=== PATIENT | female | born 2000 | race Two or more races ===

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

== ENCOUNTER 2021-06-10 01:32 | Emergency (ER) | payer OTHER ==
[~2021-06-10] VITALS: Ht 149.9 cm; Wt 47.6 kg
[~2021-06-10 01:32] MED LIST: OSEL75CA PO; TUSICOF CAPLET1 EACH PO
[2021-06-10] MEDS ORDERED: DOLOGESIC 500-1 EACH PO (08:33)
[2021-06-10] MEDS ORDERED: ZOFRAN4 MG PO (08:36)
== END 2021-06-10 08:47 | disposition home or self-care (01) ==
LOC: ER 01:32
DX: B34.9 Viral infection, unspecified (principal); Z03.818 Encounter for observation for suspected exposure to other biological agents ruled out; R11.2 Nausea with vomiting, unspecified; R50.9 Fever, unspecified; R05.9 Cough, unspecified; R53.81 Other malaise

== ENCOUNTER 2021-09-25 22:54 | Emergency (ER) | payer OTHER ==
[~2021-09-25] VITALS: Ht 149.9 cm; Wt 49.9 kg
[~2021-09-25 22:54] MED LIST changes: +ACETAMINOPHEN650 M2; +ACETAMINOPHEN650 M2 PO; +DOLOGESIC 500-1 EACH PO; +MELATONIN10 M2 PO; +MUCINEX DM ER1 EAC1 PO; +VITAMIN C WIT1000 MG PO; +ZOFRAN4 MG PO
[2021-09-26] MEDS ORDERED: PEPCID AC20 MG PO (02:21)
[2021-09-26] MEDS ORDERED: CARAFATE1 GM PO (02:21)
== END 2021-09-26 02:24 | disposition home or self-care (01) ==
LOC: EMR PED 22:54
DX: K29.70 Gastritis, unspecified, without bleeding (principal); R10.13 Epigastric pain

== ENCOUNTER 2023-12-04 19:42 | Emergency (ER) | payer OTHER ==
[~2023-12-04] VITALS: Ht 149.9 cm; Wt 59.0 kg
[~2023-12-04 19:42] MED LIST changes: +CARAFATE1 GM PO; +PEPCID AC20 MG PO
[2023-12-04 21:50] LABS: HEMATOCRIT 38.4 % (36.0-45.00); HEMOGLOBIN 13.1 g/dL (12.0-15.00); MEAN CELL VOLUME 85.8 fL (80.00-100.00); MEAN CORPUSCULAR HEMOGLOBIN 29.3 pg (27.00-32.0); MEAN CORPUSCULAR HGB CONC 34.1 g/dl (32.0-36.0); PLATELET COUNT 255 K/uL (150-450); RED BLOOD COUNT 4.47 M/uL (4.00-6.00)
[2023-12-04 21:50] LABS: PH,URINE 5.5 (5.0-8.0); URINE APPEARANCE Clear; URINE BILIRRUBIN Negative (NEGATIVE); URINE BLOOD Moderate; URINE COLOR Yellow; URINE GLUCOSE Negative (NEGATIVE); URINE LEUKOCYTE Negative; URINE NITRATE Negative; URINE PROTEIN Negative (NEGATIVE); URINE UROBILINOGEN 0.2 E.U./dl
[2023-12-04 21:51] LABS: URINE BACTERIA 482.4 uL (0.0-1933); URINE EPITHELIAL CELLS 9.4 uL (0.0-38.8); URINE RBC 2.4 uL (0.0-20.8); URINE WBC 4.6 uL (0.0-23.2)
[2023-12-04 22:13] LABS: INR 0.95; PARTIAL THROMBOPLASTIN TIME 29.9 SECONDS (22.0-34.0)
[2023-12-04 22:15] LABS: CALCIUM 9.7 mg/dL (8.5-10.1); CREATININE SERUM 0.76 mg/dL (0.55-1.02); GFR 95.16; POTASSIUM 4.2 mEq/L (3.5-5.1)
== END 2023-12-04 23:35 | disposition home or self-care (01) ==
LOC: ER 19:43
PROVIDERS: Emergency Medicine
DX: N93.9 Abnormal uterine and vaginal bleeding, unspecified (principal)

== ENCOUNTER 2024-12-30 16:58 | Emergency (ER) | payer OTHER ==
[~2024-12-30] VITALS: Ht 149.9 cm; Wt 54.4 kg
[2024-12-30] MEDS ORDERED: FAMOtidine 10 MG/ML (4ML VIAL) IV ONE (18:30)
[2024-12-30] MEDS ORDERED: KETOROLAC TROMETHAMINE 30 MG VIAL IV ONE (18:30)
[2024-12-30] MEDS ORDERED: 0.9 % SODIUM CHLORIDE 1,000 ML IV ONE (18:30)
[2024-12-30] MEDS ORDERED: FAMOTIDINE/PF 20 MG/2 ML VIAL ONE (18:43)
[2024-12-30] MEDS ORDERED: KETOROLAC TROMETHAMINE 30 MG VIAL ONE (18:43)
[2024-12-30 19:02] LABS: PH,URINE >= 9.0 (5.0-8.0); URINE APPEARANCE Cloudy; URINE BILIRRUBIN Negative (NEGATIVE); URINE BLOOD Large; URINE COLOR Yellow; URINE GLUCOSE Negative (NEGATIVE); URINE KETONE Negative (NEGATIVE); URINE LEUKOCYTE Large; URINE NITRATE Negative
[2024-12-30 19:05] LABS: URINE BACTERIA 1976.5 uL (0.0-1933); URINE EPITHELIAL CELLS 7.1 uL (0.0-38.8); URINE RBC 214.4 uL (0.0-20.8); URINE WBC 1391.1 uL (0.0-23.2)
[2024-12-30 19:13] LABS: HEMATOCRIT 40.6 % (36.0-45.00); HEMOGLOBIN 13.7 g/dL (12.0-15.00); MEAN CELL VOLUME 88.2 fL (80.00-100.00); MEAN CORPUSCULAR HEMOGLOBIN 29.8 pg (27.00-32.0); MEAN CORPUSCULAR HGB CONC 33.9 g/dl (32.0-36.0); PLATELET COUNT 276 K/uL (150-450); RED CELL DISTRIBUTION WIDTH 12.7 % (11.5-14.5)
[2024-12-30 19:15] LABS: URINE CAST 0.58 uL (0.0-1.40); URINE PROTEIN 100 (NEGATIVE)
[2024-12-30] MEDS ORDERED: CEFTRIAXONE SODIUM 1,000 MG VIAL IV ONE (19:30)
[2024-12-30] MEDS ORDERED: TAMSULOSIN HCL 0.4 MG CAP PO ONE ×2 (19:30→19:50)
[2024-12-30 19:34] LABS: INR 0.98; PARTIAL THROMBOPLASTIN TIME 30.1 SECONDS (22.0-34.0); PROTHROMBIN TIME 10.7 SECONDS (9.0-11.5)
[2024-12-30 19:40] LABS: ALBUMIN 4.5 gm/dL (3.4-5.0); ALKALINE PHOSPHATASE 69 U/L (50-136); ALT/SGPT 22 U/L (12-78); ANION GAP 10 (10.0-20.0); AST/SGOT 20 U/L (15-37); BILIRUBIN TOTAL 0.28 mg/dL (0.3-1.2); BLOOD UREA NITROGEN 14 mg/dL (7-18); BUN CREA RATIO 19 (7.0-25.0); CALCIUM 9.4 mg/dL (8.5-10.1); CARBON DIOXIDE 27 mEq/L (21-32); CHLORIDE 111 mmol/L (98-107); CREATININE SERUM 0.75 mg/dL (0.55-1.02); GFR 95.76; GLOBULINA 3.6 G/DL (2.4-3.5); GLUCOSE FASTING 88 mg/dL (65-100); OSMOLALITY SERUM 287 MOSM/KG (275-295); POTASSIUM 4.02 mEq/L (3.5-5.1); SODIUM 144 mmol/L (136-145); TOTAL PROTEIN 8.1 gm/dL (6.4-8.2)
[2024-12-30] MEDS ORDERED: CEFTRIAXONE SODIUM 1,000 MG VIAL ONE (19:50)
[2024-12-30 19:53] LABS: HCG QUANTITATIVE < 1 mUI/mL (1-3)
[2024-12-30] MEDS ORDERED: NORFLEX100MG PO (22:24)
[2024-12-30] MEDS ORDERED: TAMS0.4C PO (22:24)
[2024-12-30] MEDS ORDERED: PEPCID AC20 MG PO (22:24)
[2024-12-30] MEDS ORDERED: BACTRIM DS TAB1 EACH PO (22:24)
== END 2024-12-30 23:41 | disposition home or self-care (01) ==
LOC: ER 16:58
PROVIDERS: General Practice
DX: N39.0 Urinary tract infection, site not specified (principal); R31.9 Hematuria, unspecified; E28.2 Polycystic ovarian syndrome